=== PATIENT | male | born 1985 | race Caucasian/White ===

== ENCOUNTER → 2016-08-19 | Day surgery (SDC) | payer MEDICAID ==
[~2016-08-19] VITALS: Ht 182.9 cm; Wt 37.7 kg
[~2016-08-19] MED LIST: MULTI VITAMINS1 TAB PO; PRILOTC PO; THE MEDICINE SH1 POW
[2016-08-19 07:17] VITALS: BP 149/74; PULSE 74; TEMP 98
[2016-08-19 10:15] VITALS: BP 133/89; PULSE 54; TEMP 97.5
[2016-08-19 10:26] VITALS: TEMP 97.1
[2016-08-19 10:30] VITALS: BP 123/80; PULSE 55
[2016-08-19 10:45] VITALS: BP 126/80; PULSE 62
== END ==
LOC: SDCO 05:14
DX: K02.9 Dental caries, unspecified (principal); F84.0 Autistic disorder
CPT/HCPCS: J0690; J2250; J2405; J2704; J3010

== ENCOUNTER 2018-07-07 07:12 | Day surgery (SDC) | payer MEDICAID ==
[~2018-07-07] VITALS: Ht 182.9 cm; Wt 79.2 kg
[2018-07-07 07:56] VITALS: BP 122/63; PULSE 72; TEMP 98.4
--- NOTE | 2018-07-07 08:00 | NUR ---
ART Vasquez is at the patient's bedside to administer the ketamine IM prior to surgery. ART Gleason and CJ Dugan are also at the patient's bedside. The patient's mother and cardiac care unit nurse are also in the room. Will continue to monitor the patient.
--- NOTE | 2018-07-07 08:07 | NUR ---
The nurse is unable to assess for suicide risk assessment as the patient is autistic and nonverbal. The patient lives a [place] and receives care from the caregivers there.
[2018-07-07 10:20] VITALS: BP 123/91; PULSE 73; TEMP 97.2
[2018-07-07 10:35] VITALS: BP 137/88; PULSE 94
--- NOTE | 2018-07-07 10:35 | NUR ---
The patient appears to be resting comfortably on the cart at this time. The patient's mother and caregiver remain at his bedside at this time. IV appears to be infusing without difficulty.
[2018-07-07 10:50] VITALS: BP 107/61; PULSE 76
--- NOTE | 2018-07-07 10:50 | NUR ---
The patient appears more alert at this time. The patient's IV was removed from his right hand at this time. A pressure dressing was applied to the site. Discharge instructions were reviewed with the patient's mother and caregiver at this time. They both verbalized understanding at this time.
[2018-07-07 11:05] VITALS: BP 115/66; PULSE 69
--- NOTE | 2018-07-07 11:05 | NUR ---
The patient appears to be resting comfortably on the cart at this time. The patient had a couple episodes of burping which led to his dry heaving but no emesis has come up. Will continue to monitor the patient.
--- NOTE | 2018-07-07 11:15 | NUR ---
The patient's mother and caregiver are present to assist the patient to get dressed at this time. The nurse informed the patient's mother to notify the staff when he is ready to be escorted out.
--- NOTE | 2018-07-07 11:25 | NUR ---
The patient was escorted out via wheelchair to a private vehicle by ARCHIE Foss. The patient's belongings and discharge paperwork were sent with the mother and caregiver. The patient's mother is present to drive him back to [place].
[2018-07-07 11:28] VITALS: BP 126/88; PULSE 78
== END 2018-07-07 11:25 | disposition home or self-care (01) ==
LOC: SDCO 07:12
DX: K05.10 Chronic gingivitis, plaque induced (principal); F84.0 Autistic disorder; F79 Unspecified intellectual disabilities; K21.9 Gastro-esophageal reflux disease without esophagitis
CPT/HCPCS: J0690; J1100; J2250; J2405; J2704; J3010